=== PATIENT | female | born 1955 | race Caucasian/White ===

== ENCOUNTER → 2019-10-02 | Emergency (ER) | payer OTHER, MEDICAID ==
[~2019-10-02] VITALS: Ht 157.5 cm; Wt 59.0 kg
[~2019-10-02] MED LIST: SODIUM CHLORIDE 0.9% 1,000 ML IV ONE; SODIUM CHLORIDE 0.9% 500 ML IV ONE
[2019-10-02 10:06] VITALS: BP 132/49
== END | disposition home or self-care (01) ==
LOC: ER 09:54 → EDBD 09:54
DX: R41.82 Altered mental status, unspecified (principal); E11.40 Type 2 diabetes mellitus with diabetic neuropathy, unspecified; G89.29 Other chronic pain; E78.5 Hyperlipidemia, unspecified; Z91.14 Patient's other noncompliance with medication regimen
CPT/HCPCS: 93005; 96360; 99283; J7030